=== PATIENT | female | born 1950 | race Caucasian/White ===

== ENCOUNTER → 2018-03-27 | Outpatient (CLI) | payer MEDICARE ==
[~2018-03-27] MED LIST: ASPI81TA94 PO; ATOR40TA24 PO; BUPR1PAT8 TD; CELE-1 PO; FISH1CAP15 PO
--- NOTE | 2018-03-27 10:39 | RADIOLOGY IMAGING REPORT ---
FACILITY: [facility] - [place] PATIENT NAME: Colleen Iverson : 1950 MR: [id number] V: [id number] EXAM DATE: ORDERING PHYSICIAN: FARHANA DAVIS TECHNOLOGIST: Location: [facility] - [place] Patient: Colleen Iverson : 1950 Visit/Account:[id number] Date of Sevice: 03/27/2018 DEXA Scan Clinical history: Postmenopausal, ovarian failure. Comparison: DEXA scan from 06/28/2004. LUMBAR SPINE: The bone mineral density (BMD) measured from L1-L4 correlates with a Z-score of 4 and a T-score of 2. 9 which is Normal as defined by the World Health Organization. The corresponding risk of fracture in the lumbar spine is Not increased compared with a young adult reference population. This value has increased by 6.6 % since the prior study. More than 5% change is considered significant. HIP: Bone mineral density (BMD) measured in the LEFT total hip region correlates with a Z-score 0.6 and a T-score of -0.3 which is normal as defined by the World Health Organization. The corresponding risk of fracture in the hip is Not i ncreased compared to a young adult reference population. This value has decrease by 5.3 % since the p rior study. More than 5% change is considered significant. T score left femoral neck -0.1 Bone mineral density (BMD) measured in the Femoral Neck region measures 1.021 g/cm?. IMPRESSION: 1. Lumbar spine: Normal. There has been 6.6% increase in the bone mineral density since the previou s exam. 2. Left Total Hip: Normal. There has been 5.3% decrease in the bone mineral density since the previ ous exam. 3. Femoral Neck: Bone Mineral Density is 1.021 g/cm? The next DEXA scan of this patient should include the following sites: L1-L4 and the left hip. FRAX? WHO Fracture Risk Assessment Tool link: <http://www.shef.ac.uk/FRAX/tool.jsp?locationValue=9> PLEASE NOTE: 1) The World Health Organization defines low BMD as follows: T-score Normal > -1 Osteopenia < -1 and > -2.5 Osteoporosis < -2.5 without fractures Established osteoporosis < -2.5 with fractures 2) In general, you may wish to consider: Diagnosis Treatment Follow-up DEXA Normal BMD Prevention 2-3 years Osteopenia Prevention/therapy 1-2 years Osteoporosis Therapy Yearly 3) Fracture risk estimated from the T-score is more accurate for vertebral fractures (often spontane ous) than for hip fractures. Report Dictated By: Laura Dietrich MD at 03/27/2018 10:33 AM Report E-Signed By: Laura Dietrich MD at 03/27/2018 10:35 AM WSN:[email or web address]
--- NOTE | 2018-03-30 11:21 | RADIOLOGY IMAGING REPORT ---
FAC[place] [facility] [place]IENT NAME: YEYO CRUZ : [id number] MR: [id number] V: [id number] EXAM DATE: [id number] ORDERING PHYSICIAN: FARHANA DAVIS TECHNOLOGIST: Hannah Ward PROCEDURE:BILATERAL DIGITAL SCREENING MAMMOGRAM WITH CAD ASSISTED INTERPRETATION & 3D TOMOSYNTHESIS COMPARISON:Prior mammograms 12/18/16, 03/23/15, 02/27/15, 04/16/12. INDICATIONS:SCREENING FINDINGS: The breasts are almost entirely fatty. The parenchymal pattern has remained stable allowing for difference in mammographic technique & patient positioning. There is no evidence of malignant appearing mass, malignant appearing calcifications or other secondary sign of malignancy in either breast. DIAGNOSTIC CATEGORY 1--NEGATIVE. RECOMMENDATIONS: ROUTINE MAMMOGRAM AND CLINICAL EVALUATION. IMPRESSION: BIRADS 1: Negative. No significant abnormality is seen. Dictated by: Laura Dietrich M.D. on 03/27/2018 at 12:30 Transcribed by: CLARENCE on 03/27/2018 at 13:03 Approved by: Laura Dietrich M.D. on 03/30/2018 at 11:21 [facility]
== END ==
LOC: MAMO 03:36
PROVIDERS: ATTEND Nurse Practitioner Family
DX: Z12.31 Encounter for screening mammogram for malignant neoplasm of breast (principal); E28.39 Other primary ovarian failure
CPT/HCPCS: 77063; 77067; 77080

== ENCOUNTER → 2018-04-29 | Outpatient (CLI) | payer MEDICARE ==
[~2018-04-29] MED LIST changes: +IOPAMIDOL 76% 75 ML INFUS BTL 75 ML ONE
--- NOTE | 2018-04-29 16:36 | RADIOLOGY IMAGING REPORT ---
FAC[place] [facility] [place]IENT NAME: Colleen Iverson : 1950 MR: [id number] V: [id number] EXAM DATE: ORDERING PHYSICIAN: BLANQUITA MUÑOZ TECHNOLOGIST: Location: [facility] [place] Patient: Colleen Iverson : 1950 Visit/Account:[id number] Date of Sevice: 04/29/2018 CT CHEST (CONTRAST) History: Floor of mouth squamous cell carcinoma, one pack per day smoker TECHNIQUE: Contiguous axial images were performed through the chest to the level of the adrenal gla nds following the administration of IV contrast. Coronal and sagittal reformatting was also perform ed.Dose Lowering Technique One of the following dose optimization techniques was utilized in the performance of this exam: Autom ated exposure control; adjustment of the mA and/or kV according to the patient's size; or use of an i terative reconstruction technique. Specific details can be referenced in the facility's radiology C T exam operational policy. Contrast: 75 mL Isovue-370 COMPARISON STUDIES: none. Lungs / Pleura: There is no evidence of noncalcified pulmonary nodules, pulmonary infiltrates or pl eural effusions. There is a 4 mm calcified granuloma in the left lower lobe Mediastinum/nodes: Three calcified subcarinal and left hilar lymph nodes. No pathologically enlarge d hilar or mediastinal lymph nodes are present Heart and vessels: Mild atherosclerotic calcifications are identified at the aortic arch and branch vessels including the coronary arteries. Musculoskeletal / Body wall: There spondylotic changes of the thoracic spine. No aggressive appear ing bone lesions are seen Upper abdomen: Mild thickening of the left adrenal gland. There is a 6 mm round hyperdensity in th e left lobe of the liver which may represent a perfusional variant or an intensely enhancing nodule IMPRESSION: Evidence for prior granulomatous process. No evidence of noncalcified pulmonary nodules Mild atherosclerotic calcifications There is a 6 mm round hyperdensity in the left lobe of the liver which may represent a perfusional va riant or an intensely enhancing nodule. This could be further evaluated with ultrasound Report Dictated By: Blanquita Dietrich MD at 04/29/2018 4:23 PM Report E-Signed By: Blanquita Dietrich MD at 04/29/2018 4:31 PM WSN:[email or web address]
== END ==
LOC: CT 09:20
PROVIDERS: ATTEND Physician Assistant
DX: C04.9 Malignant neoplasm of floor of mouth, unspecified (principal); Z87.891 Personal history of nicotine dependence
CPT/HCPCS: 71260; Q9967

== ENCOUNTER → 2018-08-14 | Outpatient (CLI) | payer MEDICARE ==
[~2018-08-14] MED LIST changes: +IOPAMIDOL 76% 150 ML INFUS BTL 150 ML ONE; -IOPAMIDOL 76% 75 ML INFUS BTL 75 ML ONE
--- NOTE | 2018-08-14 13:32 | RADIOLOGY IMAGING REPORT ---
FACILITY: [facility] - [place] PATIENT NAME: Colleen Iverson : 1950 MR: [id number] V: [id number] EXAM DATE: [id number] ORDERING PHYSICIAN: BLANQUITA MUÑOZ TECHNOLOGIST: Location: [facility] [place] Patient: Colleen Iverson : 1950 Visit/Account:[id number] Date of Sevice: 08/14/2018 EXAMINATION: Neck CT without and with contrast HISTORY: Oral cancer surgery, salivary glands removed TECHNIQUE: Axial CT was performed without and with contrast. 75 mL Isovue-370 injected. One of the following dose optimization techniques was utilized in the performance of this exam: autom ated exposure control; adjustment of the mA and/or kV according to patient size; or use of iterative reconstruction technique. Specific details can be referenced in the facility's radiology CT exam ope rational policy. COMPARISON: April 08, 2018 FINDINGS: Parotid/submandibular and thyroid glands: The left submandibular gland is now surgically absent. Othe rwise unremarkable. Pharyngeal and retropharyngeal soft tissues: Normal. Oral cavity and contract assistant space soft tissues: Normal. Larynx/glottis and airway: Normal. Lymph nodes: Normal. Vessels: Medial positioning of the distal common carotid artery. Right carotid bulb calcified plaque . Visualized orbits / brain: No significant finding. Upper chest: Normal. Bones/sinuses/mastoid air cells: Multilevel degenerative cervical foraminal narrowing. Multilevel mod erate cervical spine disc space degeneration and multilevel cervical spine facet arthropathy. Small C 6 benign vertebral body lucency is unchanged. Chronic thickening and sclerosis of the left maxillary sinus harden is unchanged in keeping with residua of chronic inflammation. Mild left maxillary sinus m ucosal thickening. IMPRESSION: 1. No neck mass or adenopathy. 2. New surgically absent left submandibular gland. 3. Unchanged benign osseous lucency within the C6 vertebral body. 4. Multilevel cervical spine disc space degeneration and facet arthropathy. Report Dictated By: Daquan Harris MD at 08/14/2018 1:14 PM Report E-Signed By: Daquan Harris MD at 08/14/2018 1:28 PM WSN:[email or web address]
== END ==
LOC: CT 01:22
PROVIDERS: ATTEND Physician Assistant
DX: M47.892 Other spondylosis, cervical region (principal)
CPT/HCPCS: 36415; 70492; 82565; Q9967

== ENCOUNTER 2018-10-05 09:50 | Emergency (ER) | payer MEDICARE ==
[~2018-10-05 09:50] MED LIST changes: -IOPAMIDOL 76% 150 ML INFUS BTL 150 ML ONE
--- NOTE | 2018-10-05 10:06 | ER Report ---
History and Physical Time Seen By MD: 10:03 Hx. of Stated Complaint: PT FELL LAST NIGHT. LEFT KNEE SWOLLEN HPI/ROS CHIEF COMPLAINT: Left knee pain HISTORY OF PRESENT ILLNESS: 68-year-old female long history of arthritic left knee recommending knee replacement contacted done due to prior medical issues wi th an oral surgical cancer diagnosis however she is scheduled to get at some point in the distant future a knee replacement done patient came in today after having a witnessed mechanical fall 70s little more sore than it normally is however did not land on the knee patient had no head or neck trauma no loss consciousness pain is localized to the knee she has been limited flexion and extension which is chronic in nature no new findings of note no bruising or ecchymosis or additional complaints noted REVIEW OF SYSTEMS: Respiratory: No cough, no dyspnea. Cardiovascular: No chest pain, no palpitations. Gastrointestinal: No vomiting, no abdominal pain. Musculoskeletal: Left knee pain Remainder of the 14 system rev: Yes Allergies: Coded Allergies: No Known Drug Allergies (Unverified , 03/30/12) Home Meds Reported Medications Fish Oil/Dha/Epa (FISH OIL 1,200 MG FISH OIL) 1 Each Capsule, 1 EACH PO QDAY, CAPSULE 12/30/16 Aspirin (ASPIRIN) 81 Mg Tab.chew, 81 MG PO QDAY, TAB.CHEW 12/30/16 Atorvastatin Calcium (LIPITOR) 40 Mg Tablet, 1 TAB PO QDAY, TAB 12/30/16 Reviewed Nurses Notes: Yes Old Medical Records Reviewed: Yes Hx Smoking: Yes (1/2 ppd for 45 YEARS) Smoking Status: Current: Every Day Smoker Hx Substance Use Disorder: Yes Hx Alcohol Use: Yes Constitutional Vital Sign - Last 24 Hours 10/05/18 10:01 Temp 98.4 Pulse 85 Resp 16 B/P (MAP) 158/98 Pulse Ox 89 O2 Delivery Room Air Physical Exam General appearance: Alert no distress. Respiratory: Chest is non tender, lungs are clear to auscultation. Cardiac: Regular rate and rhythm [ ] Left knee examination obviously chronic in nature deformities to the left knee no bruising ecchymosis range of motion is limited to approximately 30 of flexion and extension negative drawer John's sign patella palpated but unable to determine bipartite patella due to the amount of arthritic changes DIFFERENTIAL DIAGNOSIS: After history and physical exam differential diagnosis was considered for acute fracture dislocation subluxation arthritic acute on chronic disease Medical Decision Making ED Course/Re-evaluation ED Course ED course medical decision making this is a 68-year-old female long history of arthritic changes to her left knee had a mechanical fall x-rays show no fracture dislocation subluxation does have a tricompartmental ostial right spurring of the tibial spines intra-articular loose bones noted small joint effusions IS with chronic disorders nothing new or acute coronary immobilizer crutches and follow-up with primary care Decision to Disposition Date: Oct 05, 2018 Decision to Disposition Time: 10:41 Depart Departure Latest Vital Signs Vital Signs Date Time Temp Pulse Resp B/P (MAP) Pulse Ox O2 Delivery O2 Flow Rate FiO2 10/05/18 10:01 98.4 85 16 158/98 89 Room Air Impression: Primary Impression: Degenerative arthritis of knee Condition: Condition Unchanged Disposition: HOME OR SELF-CARE Referrals: FARHANA DAVISP (PCP) 5 Days Patient Instructions: Knee Pain (ED), Knee Replacement (DC) AP HUITRON MD Oct 05, 2018 10:06
--- NOTE | 2018-10-05 10:40 | RADIOLOGY IMAGING REPORT ---
FACILITY: [facility] - [place] PATIENT NAME: Colleen Iverson : 1950 MR: [id number] V: [id number] EXAM DATE: ORDERING PHYSICIAN: AP HUITRON TECHNOLOGIST: Location: [facility] [place] Patient: Colleen Iverson : 1950 Visit/Account:[id number] Date of Sevice: 10/05/2018 Technique: KNEE 3 VIEW LEFT HISTORY: fall Comparison studies: None FINDINGS: There is no acute fracture. Tricompartmental osteophytosis is noted as well as spurring of the tibial spines. Possible intra-articular loose body is noted. There is a small knee joint effus ion. IMPRESSION: 1. Degenerative findings as above. Report Dictated By: Neel Jiang DO at 10/05/2018 10:32 AM Report E-Signed By: Neel Jiang DO at 10/05/2018 10:34 AM WSN:[email or web address]
[2018-10-05 11:00] VITALS: BP 105/90
== END 2018-10-05 10:55 | disposition home or self-care (01) ==
LOC: ER 10:13
DX: M17.12 Unilateral primary osteoarthritis, left knee (principal)
CPT/HCPCS: 73562; 99283; L1830

== ENCOUNTER → 2018-12-02 | Outpatient (CLI) | payer MEDICARE ==
--- NOTE | 2018-12-02 11:26 | EKG ---
FACILITY: [facility] PATIENT NAME: YEYO CRUZ : [id number] MR: [id number] V: [id number] EXAM DATE: ORDERING PHYSICIAN: FARHANA DAVIS TECHNOLOGIST: NICA Russell Reason : LEFT KNEE Blood Pressure : / mmHG Vent. Rate : 073 BPM Atrial Rate : 073 BPM P-R Int : 156 ms QRS Dur : 082 ms QT Int : 392 ms P-R-T Axes : 072 061 074 degrees QTc Int : 431 ms Sinus rhythm Possible left atrial enlargement No acute appearing findings Confirmed by INGRIS NAVA ([id number] on 12/02/2018 12:41:24 PM Referred By: SUSAN Confirmed By:INGRIS NAVA
== END ==
LOC: RESP 10:46
PROVIDERS: ATTEND Nurse Practitioner Family
DX: Z01.810 Encounter for preprocedural cardiovascular examination (principal)
CPT/HCPCS: 93005